=== PATIENT | female | born 2000 | race Caucasian/White ===

== ENCOUNTER 2020-03-06 07:30 | Outpatient (CLI) | payer OTHER, SELFPAY ==
[2020-03-06 09:58] LABS: Hematocrit 37.2 % (37.0-47.0); Hemoglobin 12.3 g/dL (12.0-15.0)
[2020-03-06 10:11] LABS: Glucose 1 Hour PP 50gm Dose 131 mg/dL
[2020-03-06 11:06] LABS: HIV 1/2 Ab P24 Ag Result Negative (Negative)
== END 2020-03-06 07:31 | disposition home or self-care (01) ==
PROVIDERS: PCP Emergency Medicine; Visit Provider Obstetrics & Gynecology
DX: Z34.92 Encounter for supervision of normal pregnancy, unspecified, second trimester (principal)
CPT/HCPCS: 36415; 82947; 85014; 85018; 86703; G0432

== ENCOUNTER 2020-04-13 09:09 | Outpatient (CLI) | payer OTHER, SELFPAY ==
[2020-04-13 09:45] VITALS: BP 116/58; PULSE 84
[2020-04-13 09:59] VITALS: BP 116/58; PULSE 89
--- NOTE | 2020-04-13 10:20 | PC.NURSE ---
Spoke with Dr. mathews, reported on negative ROM plus. patient did report a back spasm overnight but reports no discomfort now. Orders to discharge home.
== END 2020-04-13 10:05 | disposition home or self-care (01) ==
LOC: ANHOBOP 09:15 → ANHOBPP 09:15
PROVIDERS: Visit Provider Obstetrics & Gynecology
DX: Z34.90 Encounter for supervision of normal pregnancy, unspecified, unspecified trimester (principal); Z3A.00 Weeks of gestation of pregnancy not specified
CPT/HCPCS: 59025; 84112; 99199

== ENCOUNTER 2020-04-30 13:22 | Outpatient (RCR) | payer OTHER, SELFPAY ==
[2020-04-11 14:21] VITALS: BP 122/79; PULSE 89
[2020-04-16 13:24] VITALS: BP 110/56; PULSE 89
[2020-04-16 13:25] VITALS: BP 110/56; PULSE 89
[2020-04-24 23:21] VITALS: BP 129/71; PULSE 82
[2020-04-30] VITALS (8 sets, daily range): BP systolic 119–148; BP diastolic 63–90; PULSE 105
--- NOTE | ~2020-04-30 | US_ITS ---
EXAMINATION: US OB BPP wo non-stress DATE: 04/30/2020 15:11 INDICATION: Small for gestational age. Third trimester. TECHNIQUE: Real-time pelvic ultrasound was performed. COMPARISON: Ultrasound 04/11/2020, 09/14/2019 FINDINGS: There is a single living fetus in vertex presentation. The placenta is anterior. heart rate is 145 beats per minute (bpm). Biophysical profile performed by the technologist: breathing (30 sec sustained breathing in 30 minutes): 2 out of 2 movement (3 gross body movements in 30 minutes): 2 out of 2 tone (one episode of vugmipv-adebdpuuq-dpwhgla limb movement): 2 out of 2 Amniotic fluid pocket (2 cm): 2 out of 2 Total score: 8 out of 8 IMPRESSION: 1. Single living fetus in vertex presentation. 2. Biophysical profile 8 out of 8. Reviewed, dictated and finalized at location A.
--- NOTE | ~2020-04-30 | US_ITS ---
EXAMINATION: US OB BPP wo non-stress DATE: 04/11/2020 14:17 INDICATION: Decreased movement. Third trimester. TECHNIQUE: Real-time pelvic ultrasound was performed. COMPARISON: Ultrasound 09/14/2019 FINDINGS: There is a single living fetus in vertex presentation. The placenta is anterior. heart rate is 159 beats per minute (bpm). The amniotic fluid volume is subjectively normal. Biophysical profile performed by the technologist: breathing (30 sec sustained breathing in 30 minutes): 2 out of 2 movement (3 gross body movements in 30 minutes): 2 out of 2 tone (one episode of ipzbdjg-vhvplczzn-sdtpebl limb movement): 2 out of 2 Amniotic fluid pocket (2 cm): 2 out of 2 Total score: 8 out of 8 IMPRESSION: 1. Single living fetus in vertex presentation. 2. Biophysical profile 8 out of 8. Reviewed, dictated and finalized at location A.
[2020-04-30 16:03] LABS: Basophils Absolute Auto 0.1 K/mm3 (0.0-0.1); Basophils Percent Auto 0.4 % (0.2-1.2); Eosinophils Absolute Auto 0.1 K/mm3 (0-0.3); Hematocrit 40.5 % (37.0-47.0); Hemoglobin 13.3 g/dL (12.0-15.0); Immature Granulocyte Absolute 0.06 K/mm3 (0.00-0.031); Immature Granulocyte Percent A 0.5 % (0-0.5); Lymphocytes Absolute Auto 1.94 K/mm3 (0.9-3.2); Mean Corpuscular HGB Conc 32.8 g/dl (32-36); Mean Corpuscular Hemoglobin 27.8 pg (26-34); Mean Corpuscular Volume 84.7 fl (80-100); Mean Platelet Volume 10.5 fl (7.4-10.4); Monocytes Absolute Auto 0.7 K/mm3 (0.1-0.6); Monocytes Percent Auto 5.9 % (2.6-8.5); Neutrophils Absolute Auto 9.2 K/mm3 (1.3-6.7); Neutrophils Percent Auto 76.2 % (45.5-73.1); Platelet Count Result 338 k/mm3 (150-375); Red Blood Count 4.78 M/mm3 (4.2-5.4); Red Cell Distribution Width 14.2 % (11.5-14.5); White Blood Count 12.1 K/mm3 (4.5-10.0)
[2020-04-30 16:07] LABS: Add Urine Microscopic? YES; Appearance Urine Cloudy (Clear); Bacteria Urine 4+ /hpf; Bilirubin Urine Negative (Negative); Blood Urine Negative (Negative); Color Urine Yellow (Yellow); Glucose Urine UA Negative (Negative); Ketones Urine Negative (Negative); Leukocyte Esterase Ur 2+ LEU/UL (NEGATIVE); Mucus Urine Rare /lpf; Nitrate Urine Negative (Negative); Protein Urine Negative (Negative); Specific Grav Ur 1.012 (1.001-1.035); Squamous Epithelial Cell Urine Many /hpf (Few); Urobilinogen Urine Negative mg/dL (<2.0)
[2020-04-30 16:15] LABS: Alanine Aminotransferase 10 U/L (4-35); Albumin Level 3.5 g/dL (3.5-5.1); Alkaline Phosphatase 200 U/L (38-126); Aspartate Amino Transferase 17 U/L (14-36); Bilirubin,Total 0.2 mg/dL (0.2-1.3); Blood Urea Nitrogen 7 mg/dL (7-17); Carbon Dioxide 21 mmol/L (22-30); Chloride 105 mmol/L (98-107); Estimated Glomerular Filt Rate > 60; Glucose 85 mg/dL (65-105); Potassium 4.2 mmol/L (3.4-5.0); Sodium 132 mmol/L (137-145); Uric Acid 4.3 mg/dL (2.5-7.5)
== END 2020-05-07 11:19 | disposition home or self-care (01) ==
LOC: ANHOBOP 13:22
PROVIDERS: Obstetrics & Gynecology; PCP Emergency Medicine; Visit Provider Obstetrics & Gynecology
DX: O36.8130 Decreased fetal movements, third trimester, not applicable or unspecified (principal); Z3A.35 35 weeks gestation of pregnancy; Z3A.36 36 weeks gestation of pregnancy; E66.9 Obesity, unspecified; Z3A.37 37 weeks gestation of pregnancy; Z3A.38 38 weeks gestation of pregnancy
CPT/HCPCS: 36415; 59025; 76819; 80053; 81001; 84550; 85025; 87086; 87088

== ENCOUNTER 2020-05-06 18:49 | Inpatient (IN) | payer OTHER, SELFPAY ==
[2020-05-06] VITALS (19 sets, daily range): BP systolic 119–138; BP diastolic 63–80; PULSE 73–103; TEMP 37; BMI 49.1
--- NOTE | 2020-05-06 18:49 | LDADM ---
This patient, Amelia Esquivel, was admitted to Labor/Delivery/Recovery 107 on 05/06/20 at 18:49. Plans for labor, pain management and were discussed with patient. Patient/family oriented to hospital policies and general routines including ID bracelet, bed and alarms, visiting hours, pain management, procedures, bathroom and other care routines, personal items, smoking policy, room service/diet and guest tray routines, infant security routines, and visiting hours. Patient/Family are encouraged to report perceived risks to care and to ask questions if they do not understand what they are told or what they should do. See OBIX for further documentation.
[2020-05-06 19:55] LABS: Basophils Absolute Auto 0.1 K/mm3 (0.0-0.1); Basophils Percent Auto 0.4 % (0.2-1.2); Eosinophils Absolute Auto 0.1 K/mm3 (0-0.3); Eosinophils Percent Auto 0.5 % (0-4.4); Hematocrit 35.8 % (37.0-47.0); Immature Granulocyte Absolute 0.06 K/mm3 (0.00-0.031); Immature Granulocyte Percent A 0.5 % (0-0.5); Lymphocytes Percent Auto 16.7 % (18.3-44.2); Mean Corpuscular HGB Conc 33.5 g/dl (32-36); Mean Corpuscular Volume 83.4 fl (80-100); Mean Platelet Volume 10.8 fl (7.4-10.4); Monocytes Absolute Auto 0.8 K/mm3 (0.1-0.6); Monocytes Percent Auto 6.1 % (2.6-8.5); Neutrophils Percent Auto 75.8 % (45.5-73.1); Platelet Count Result 352 k/mm3 (150-375); Red Blood Count 4.29 M/mm3 (4.2-5.4); Red Cell Distribution Width 14.3 % (11.5-14.5); White Blood Count 13.2 K/mm3 (4.5-10.0)
[2020-05-06] MEDS: AMPICILLIN 2 GM/NS 100 ML 2 GM/100 ML BAG IVPB (19:56)
[2020-05-06] MEDS: LACTATED RINGERS 1,000 ML 125 ML IV CONT (19:57)
[2020-05-06] MEDS: DINOPROSTONE 10 MG VAG INSERT VAGINAL (21:08)
[2020-05-07] VITALS (170 sets, daily range): BP systolic 77–142; BP diastolic 33–97; PULSE 68–197; RESP 18; TEMP 36.6–36.9; O2SAT 92–100
[2020-05-07] MEDS: AMPICILLIN 1 GM/NS 50 ML 1 GM/50 ML BAG IVPB ×4 (00:07→11:57)
--- NOTE | 2020-05-07 04:50 | WPDANESEPP ---
Anes - Eval Pre Procedure Procedure: labor epidural Date/Time: 05/07/20 04:50 Surgeon: Karyn Preop Diagnosis: labor pain Pre Op Diagnosis: Induction of Labor Patient Data Age: 19 Gender: F Height: 1.57 m Weight: 122 kg Last Vital Signs Temp 37.0 C 05/06/20 19:16 Pulse 83 05/07/20 04:32 BP 137/92 H 05/07/20 04:32 Allergies Allergy/AdvReac Type Severity Reaction Status Date / Time No Known Allergies Allergy Verified 04/16/20 13:18 Home Medications Medication Instructions Recorded Confirmed Type PNV cmb#95-ferrous fumarate-FA 1 tablet PO DAILY 04/11/20 05/06/20 History [] acetaminophen [Tylenol Extra 1,000 mg PO Q6H PRN 04/11/20 05/06/20 History Strength] Laboratory Tests 05/06/20 05/06/20 05/06/20 19:50 19:50 19:50 WBC 13.2 K/mm3 H K/mm3 (4.5-10.0) RBC 4.29 M/mm3 M/mm3 (4.2-5.4) Hgb 12.0 g/dL g/dL (12.0-15.0) Hct 35.8 % L % (37.0-47.0) MCV 83.4 fl fl (80-100) MCH 28.0 pg pg (26-34) MCHC 33.5 g/dl g/dl (32-36) RDW 14.3 % % (11.5-14.5) Plt Count 352 k/mm3 k/mm3 (150-375) MPV 10.8 fl H fl (7.4-10.4) Immature Gran % (Auto) 0.5 % % (0-0.5) Neut % (Auto) 75.8 % H % (45.5-73.1) Lymph % (Auto) 16.7 % L % (18.3-44.2) [place] % (Auto) 6.1 % % (2.6-8.5) Eos % (Auto) 0.5 % % (0-4.4) Baso % (Auto) 0.4 % % (0.2-1.2) Lymph # (Auto) 2.20 K/mm3 K/mm3 (0.9-3.2) [place] # (Auto) 0.8 K/mm3 H K/mm3 (0.1-0.6) Eos # (Auto) 0.1 K/mm3 K/mm3 (0-0.3) Baso # (Auto) 0.1 K/mm3 K/mm3 (0.0-0.1) Abs Immat Gran (auto) 0.06 K/mm3 H K/mm3 (0.00-0.031) Absolute Neuts (auto) 10.0 K/mm3 H K/mm3 (1.3-6.7) Absolute Nucleated RBC 0.0 K/mm3 K/mm3 (0.0-0.012) Nucleated RBC % 0.0 % % (0.0-0.2) RPR Pending Blood Type A Positive Antibody Screen Negative Patient hx anesthesia problems: none Family hx anesthesia problems: none [facility] Past Medical History Medical History (Updated 05/07/20 @ 04:52 by Orlando Arce CRNA) Morbid obesity with BMI of 45.0-49.9, adult No active medical problems Surgical History Surgical History (Updated 05/07/20 @ 04:52 by Orlando Arce CRNA) History of tonsillectomy and adenoidectomy No pertinent past surgical history Family History Family History (Updated 04/16/20 @ 13:21 by Braulio Encarnacion RN) Mother Patient's mother is in good health Father Patient's father is in good health Sibling Patient's brother is in good health Grandparent Acute myocardial infarction Social History Social History (Updated 11/25/19 @ 16:40 by Glenny Berry) Smoking status: Never smoker Substance use: never Spiritual care concerns: No Exam Day of Procedure 05/07/20 04:50 Patient weight: morbidly obese Heart: regular rate and rhythm Lungs: clear to auscultation and normal air movement Airway: Mallampati scale class II Neurological: alert and oriented
[2020-05-07] MEDS: LACTATED RINGERS 1,000 ML 125 ML IV CONT ×3 (07:31→12:01)
--- NOTE | 2020-05-07 07:38 | PM.IMHP ---
H&P: HPI History of Present Illness Chief complaint: Induction of Labor Narrative: Amelia Esquivel is a 19 year old female at 39wks and 4 days admitted for elective term induction of labor. She states she has been feeling contractions all night. Feeling some nausea. Would like an epidural. Review of Systems Constitutional: Constitutional: Reports no additional constitutional complaints Cardiovascular: Cardiovascular: Reports no additional cardiovascular complaints Respiratory: Respiratory: Reports no additional respiratory complaints Gastrointestinal: Gastrointestinal: Reports no additional gastrointestinal complaints, Reports nausea and Reports vomiting Genitourinary: Genitourinary: Reports no additional female genitourinary complaints Musculoskeletal: Musculoskeletal: Reports no additional musculoskeletal complaints Neurologic: Reports system reviewed and no additional complaints, except as documented Psychiatric: Psychiatric: Reports no additional psychiatric complaints [facility] Past Medical History Medical History (Updated 05/07/20 @ 07:42 by Willy Boss DO) Morbid obesity with BMI of 45.0-49.9, adult No active medical problems Surgical History Surgical History (Updated 05/07/20 @ 04:52 by Orlando Arce CRNA) History of tonsillectomy and adenoidectomy No pertinent past surgical history Family History Family History (Updated 04/16/20 @ 13:21 by Braulio Encarnacion RN) Mother Patient's mother is in good health Father Patient's father is in good health Sibling Patient's brother is in good health Grandparent Acute myocardial infarction Social History Social History (Updated 11/25/19 @ 16:40 by Glenny Berry) Smoking status: Never smoker Substance use: never Spiritual care concerns: No Meds Home Medications and Allergies Home Medications Medication Instructions Recorded Confirmed Type PNV cmb#95-ferrous fumarate-FA 1 tablet PO DAILY 04/11/20 05/06/20 History [] acetaminophen [Tylenol Extra 1,000 mg PO Q6H PRN 04/11/20 05/06/20 History Strength] Allergies Allergy/AdvReac Type Severity Reaction Status Date / Time No Known Allergies Allergy Verified 04/16/20 13:18 Vital Signs Vital Signs - 24 hr 05/06/20 19:07 05/06/20 19:16 05/06/20 19:31 Temperature 37.0 C Pulse Rate 102 H 103 H 92 Blood Pressure 133/68 138/71 123/70 05/06/20 20:10 05/06/20 20:17 05/06/20 20:31 Temperature Pulse Rate 89 89 91 Blood Pressure 136/78 133/77 123/74 05/06/20 20:46 05/06/20 21:02 05/06/20 21:18 Temperature Pulse Rate 91 91 86 Blood Pressure 136/80 119/63 125/74 05/06/20 21:31 05/06/20 21:46 05/06/20 22:01 Temperature Pulse Rate 73 91 91 Blood Pressure 128/65 134/75 119/68 05/06/20 22:16 05/06/20 22:31 05/06/20 22:47 Temperature Pulse Rate 91 87 83 Blood Pressure 125/70 128/77 135/74 05/06/20 23:02 05/06/20 23:15 05/06/20 23:17 Temperature 37.0 C Pulse Rate 78 75 Blood Pressure 136/71 138/73 05/06/20 23:32 05/07/20 03:00 05/07/20 03:39 Temperature 36.6 C Pulse Rate 78 81 Blood Pressure 129/77 130/65 05/07/20 03:46 05/07/20 04:01 05/07/20 04:16 Temperature Pulse Rate 89 79 84 Blood Pressure 119/72 130/71 142/83 H 05/07/20 04:32 05/07/20 05:01 05/07/20 05:03 Temperature Pulse Rate 83 79 79 Blood Pressure 137/92 H 135/75 131/66 05/07/20 05:16 05/07/20 05:31 05/07/20 05:46 Temperature Pulse Rate 76 79 77 Blood Pressure 125/73 135/61 132/75 05/07/20 06:01 Temperature Pulse Rate 83 Blood Pressure 137/63 Exam Const: General: no acute distress Resp: Effort & Inspection: normal respiratory effort Cardio: Rate: regular rate GI: Other: gravid Skin: General skin exam: normal color Psych: Mental Status: mental status grossly normal Affect: normal affect H&P: Results Labs Labs: Short CBC 05/06/20 05/06/20 Range/Units 19:50 19:50 WBC 13.2
[2020-05-07 09:14] LABS: Rapid Plasma Reagin Non-Reactive (NonReactive)
[2020-05-07] MEDS: OXYTOCIN 30 UNITS/NS 500 ML 30 UNITS/500 ML BAG 6 UNITS IV CONT (09:17)
--- NOTE | 2020-05-07 09:56 | PM.OBPNLAB ---
Pain Control Date/time seen: 05/07/20 09:56 S: Comfortable s/p epidural, no complaints. Wants to try and sleep. O: VSS Cervix: /-2 AROM, clear 0930 FHT's: 150's/ mod lisa/ + accels/ recurrent variable decels - cat 2 IUPC; ctx's q 2-3min Pit: 2mu --> held A/P: Early IOL AROM performed w/o difficulties, clear fluid noted IUPC placed to better monitor contractions while on pitocin Recurrent variables noted after AROM; pitocin held and position changed; variables improving-- will continue to monitor closely If reassuring FHT's for 30 minutes and contractions space out, will restart pitocin Continue GBS ppx
[2020-05-07] MEDS: SODIUM CHLORIDE 0.9% IV 300 ML 600 ML I-UTERINE (10:26)
[2020-05-07] MEDS: ONDANSETRON INJ 4 MG/2 ML VIAL IV PUSH (11:57)
--- NOTE | 2020-05-07 13:20 | PM.OBPNVD ---
OB - PN: Subj Subjective Date/time seen: 05/07/20 13:20 Feeling better with epidural in place OB - PN: Obj Data Labs CBC & Chem 7: 05/06/20 19:50 Labs: Laboratory Results - last 24 hr 05/06/20 05/06/20 05/06/20 19:50 19:50 19:50 WBC 13.2 H RBC 4.29 Hgb 12.0 Hct 35.8 L MCV 83.4 MCH 28.0 MCHC 33.5 RDW 14.3 Plt Count 352 MPV 10.8 H Immature Gran % (Auto) 0.5 Neut % (Auto) 75.8 H Lymph % (Auto) 16.7 L [place] % (Auto) 6.1 Eos % (Auto) 0.5 Baso % (Auto) 0.4 Lymph # (Auto) 2.20 [place] # (Auto) 0.8 H Eos # (Auto) 0.1 Baso # (Auto) 0.1 Abs Immat Gran (auto) 0.06 H Absolute Neuts (auto) 10.0 H Absolute Nucleated RBC 0.0 Nucleated RBC % 0.0 RPR Non-reactive Blood Type A Positive Antibody Screen Negative OB - PN A/P Assessment and Plan (1) Term : Code(s): Z34.90 - Encounter for supervision of normal , unspecified, unspecified trimester Status: Acute Assessment and Plan: strip reviewed. Recurrent variable decelerations after AROM. IUPC and Amnioinfusion started. Decels resolved. Now category 1 tracing. Will restart pitocin. (2) Obesity affecting : Code(s): O99.210 - Obesity complicating , unspecified trimester Status: Acute (3) GBS (group B Streptococcus carrier), +RV culture, currently : Code(s): O99.820 - Streptococcus B carrier state complicating Status: Acute Time Spent With Patient Time: Total time spent is greater than 50% in coordination of care (as documented) at patient's floor/unit and/or counseling patient: Exam : Manual OB Exam: dilated (5-6cm), effaced (90%) and station -2
--- NOTE | 2020-05-07 15:58 | PM.OBPRVD ---
OB - Delivery Note Procedure Delivery date: 05/07/20 events: Labor Induction (Elective term) Intrapartal events: None Induction method: AROM, per pitocin protocol and other (cervidil) Delivery augmentation: pitocin Delivery monitor: internal uterine Route of delivery: Laceration description: Perineal - 1st Degree Delivery repair: vicryl (3-0) Specimen: No Estimated blood loss (mL): 100 Anesthesia type: Epidural Baby Date of : 05/07/20 Time of : 15:35 Weeks of gestation at delivery: 39 Infant gender: Female Weight (pounds): 6 Weight (ounces): 10 presentation: vertex position: Right Occiput Anterior Placenta delivery description: Spontaneous cord vessel description: 3 Vessels score one minute: 8 score five minutes: 9
[2020-05-07] MEDS: OXYTOCIN 30 UNITS/NS 500 ML 30 UNITS/500 ML BAG 125 UNITS IV CONT (16:16)
--- NOTE | 2020-05-07 17:24 | OP_ITS ---
DATE OF PROCEDURE: 05/07/2020 PROCEDURE: Normal spontaneous vaginal delivery. PREDELIVERY DIAGNOSES: 1. 39-week term gestation. 2. Obesity. POSTDELIVERY DIAGNOSES: 1. 39-week term gestation. 2. Obesity. 3. Status post normal spontaneous vaginal delivery. ANESTHESIA: Epidural. ESTIMATED BLOOD LOSS: 100 mL. COMPLICATIONS: None apparent. SPECIMEN: Cord blood, placenta discarded. FINDINGS: 1. Single live female born on May 07 at 15:35. Weight 6 pounds 10 ounces female, Apgars 8 and 9. 2. First-degree perineal lacerations repaired with 3-0 Vicryl. BRIEF HISTORY: A 19-year-old, G1, P0, at 39 weeks and 4 days gestation initially admitted for elective induction of labor at term. Cervical ripening with Cervidil. Labor induction with Pitocin and artificial rupture of membranes. Fetus had intermittent variable decelerations, which was resolved with an IUPC and amnioinfusion. DESCRIPTION OF PROCEDURE: Once the patient was noted to be complete and ready to push, delivered, bed was broken down. The patient's legs were placed in stirrups for support with contractions and maternal efforts. The fetus presented in TREMAINE position. Head was delivered followed by the anterior shoulder and posterior shoulder and rest of the body. The was then handed off to the mother. Delayed cord clamping of approximately 1 minute was performed. The cord was clamped and cut. The placenta was delivered spontaneously. Fundal massage applied. IV Pitocin administered. Exam was performed to identify any lacerations. A first-degree perineal laceration was noted. This was repaired using 3-0 Vicryl. Good hemostasis was noted. This completed the procedure. All sponge and instrument counts were correct. The patient tolerated the procedure well and is resting in the Labor and Delivery room. D I MT: Nelsy DAN
[2020-05-07] MEDS: WITCH HAZEL 40 PADS 1 PAD TOPICAL (18:16)
[2020-05-07] MEDS: BENZOCAINE 20% AER SPR (*SP) 56 GM CAN 1 SPRAY TOPICAL (18:16)
[2020-05-07] MEDS: IBUPROFEN 600 MG TABLET PO (18:16)
[2020-05-08 05:43] LABS: Hematocrit 30.4 % (37.0-47.0); Hemoglobin 10.1 g/dL (12.0-15.0)
[2020-05-08 07:00] VITALS: BP 101/60; PULSE 80; RESP 18; TEMP 36.6; O2SAT 98
[2020-05-08] MEDS: DOCUSATE SODIUM 100 MG CAPSULE PO (07:03)
[2020-05-08] MEDS: IBUPROFEN 600 MG TABLET PO ×2 (07:03→13:43)
--- NOTE | 2020-05-08 07:53 | WPDANLDPN2 ---
Anes-Prog Note L&D Date/Time: 05/08/20 07:53 Comfortable throughout: labor and delivery Neuraxial method: epidural Epidural/Spinal procedure site: clean & non-tender Neuro status: Neuro function grossly intact. Cardiovascular status: normal Respiratory status: normal Airway patency: baseline Mental status: baseline Post-Op hydration status: normal Vital Signs: Last Vital Signs Temp 36.8 C 05/07/20 18:55 Pulse 78 05/07/20 18:55 Resp 18 05/07/20 18:55 BP 114/53 L 05/07/20 18:55 Pulse Ox 100 05/07/20 18:55 I/O: Intake & Output 05/07/20 05/07/20 05/08/20 15:59 23:59 07:59 Intake Total 2049 650 Output Total 50 Balance 2049 600 Post-procedural complaints: none Patient feedback: Patient satisfied with anesthetic care.
--- NOTE | 2020-05-08 16:35 | PM.OBPNVD ---
OB - PN: Subj Subjective Date/time seen: 05/08/20 16:35 Patient comments: no complaints and pain well controlled baby status: doing well Narrative: Having some pain and soreness, but pain medication helps. Tired and wants to sleep. Ambulating. Tolerating diet OB - PN: Obj Data Labs CBC & Chem 7: 05/08/20 04:59 Labs: Laboratory Results - last 24 hr 05/08/20 04:59 Hgb 10.1 L Hct 30.4 L OB - PN A/P Assessment and Plan (1) (normal spontaneous vaginal delivery): Code(s): O80 - Encounter for full-term uncomplicated delivery Status: Acute Assessment and Plan: Routine care pain management ambulate DC home tomorrow 05/09 (2) Obesity affecting : Code(s): O99.210 - Obesity complicating , unspecified trimester Status: Acute Time Spent With Patient Time: Total time spent is greater than 50% in coordination of care (as documented) at patient's floor/unit and/or counseling patient: Exam Const: General: comfortable, no acute distress, alert and awake; No acute distress Orientation/consciousness: patient oriented x3 Resp: Effort & Inspection: normal respiratory effort Cardio: Rate: regular rate GI: Other: soft, nontender Psych: Appearance: grossly normal Affect: normal affect Attitude: cooperative Judgement: Good judgement present (Psych)
[2020-05-08 19:13] VITALS: BP 108/58; PULSE 88; RESP 16; TEMP 36.6
[2020-05-09] MEDS: IBUPROFEN 600 MG TABLET PO ×2 (02:40→08:57)
[2020-05-09 08:25] VITALS: BP 122/69; PULSE 70; RESP 18; TEMP 36.9; O2SAT 100
--- NOTE | 2020-05-09 09:03 | PC.NURSE ---
Patient viewed the discharge video Mother & Baby Care, The First Two Weeks . Patient was given the opportunity and encouraged to ask questions. Patient verbalized understanding of information shared and has been given the mother/baby guide for home reference.
[2020-05-09] MEDS: MEASLES,MUMPS,RUBELLA VACCINE 0.5 ML VIAL SUB-Q (13:15)
--- NOTE | 2020-05-09 16:49 | PM.OBDSVD ---
DS: Admitting Diagnosis Admitting Diagnosis Admitting Diagnosis: Encounter for supervision of normal , unspecified, unspecified trimester DS: Discharge Diagnosis Discharge Diagnosis (1) (normal spontaneous vaginal delivery): Code(s): O80 - Encounter for full-term uncomplicated delivery Status: Acute OB - DS: Summary OB Procedures : None OB Procedures Intrapartum: Spontaneous Vag Delivery OB Procedures: : None Peripartum Data Delivery Method: Natural Vaginal Laceration description: Perineal - 1st Degree complications: none Status at Discharge Functional status at discharge: independent ambulation Overall status at discharge: patient is progressing back to baseline Time Spent with Patient Time attestation: Total time spent providing and/or coordinating discharge services: Exam Const: General: comfortable, no acute distress, alert and awake; No acute distress Orientation/consciousness: patient oriented x3 Resp: Effort & Inspection: normal respiratory effort Cardio: Rate: regular rate GI: Other: soft, nontender Neuro: General: patient oriented x3 Psych: Appearance: grossly normal Mental Status: mental status grossly normal Affect: normal affect Attitude: cooperative Judgement: Good judgement present (Psych) Discharge Plan Discharge Attending physician on discharge: Willy Boss Discharging Clinician: Willy Boss Patient Disposition: Home, Self-Care Activity: as tolerated Diet: regular Discharge Instructions: Education: Mom and Baby Guide Given to: Mother Follow-Up: Call your delivering provider's office for an appointment to be seen in: Call for appointment Mom and baby should come to the [facility] for the follow-up appointment. Appointment Date/Time: April at 10:00 am What to expect at your follow-up visit: Blood Pressure Check Physical Assessment Call [phone] if you are unable to keep your appointment time. BREAST CARE: 1. Wear a snug supportive bra. 2. For engorgement discomfort: Bottle Feeding: A. May apply ice packs EPISIOTOMY/PERINEAL CARE: 1. Until bleeding stops, use your cristhian bottle after urinating 2. Change your pad frequently throughout the day 3. You may take sitz baths several times a day (fill your bathtub with warm water and soak for 20 minutes.) Do NOT bathe in the water 4. No tub baths until seen by your physician - You may shower ACTIVITY: 1. Rest as much as possible. 2. Do not exercise or lift anything heavier than your baby (such as laundry or other children.) 3. Avoid stairs or driving as much as possible. 4. Do not put anything into the vagina. No douching, tampons, or sexual activity until seen by physician. NOTIFY PHYSICIAN IF YOU HAVE ANY QUESTIONS OR IF ANY OF THE FOLLOWING SYMPTOMS OCCUR: 1. If your perineum becomes red, swollen, or more painful than what you have experienced in the hospital. 2. If your vaginal bleeding becomes foul smelling. 3. If your vaginal bleeding becomes more heavy than a period or if your bleeding changes from pink to bright red. However, you may pass an occasional walnut-sized clot once or twice for the first week . 4. If you experience a sharp, shooting pain in you calves. 5. If you discover a hard, reddened area on your breast or if you experience flu-like symptoms. DIET: 1. Eat regular, well-balanced meals. 2. Drink plenty of fluids daily. If , drink to thirst. Stand Alone Forms: General Discharge Information Follow-up/Referrals: Willy Boss DO [Physician] - Call for Appointment Discharge Medications: New docusate sodium 100 mg Capsule 100 mg PO BID PRN (Reason: Constipation) Qty: 60 RF: 0 ibuprofen 600 mg Tablet 600 mg PO Q6H PRN (Reason: Cramping) Qty: 90 RF: 0 Continued acetaminophen [Tylenol Extra Strength] 500 mg Tablet 1,
[2020-05-10 10:20] VITALS: BP 116/77; PULSE 76; RESP 20; TEMP 37
== END 2020-05-09 13:46 | disposition home or self-care (01) | DRG 560 ==
LOC: ANHLDR 19:04 → ANHOB2 05-07 18:39
PROVIDERS: Admitting Provider Obstetrics & Gynecology; Visit Provider Obstetrics & Gynecology
DX: O99.214 Obesity complicating childbirth (principal); Z37.0 Single live birth; Z3A.39 39 weeks gestation of pregnancy; E66.01 Morbid (severe) obesity due to excess calories; O36.8330 Maternal care for abnormalities of the fetal heart rate or rhythm, third trimester, not applicable or unspecified; O70.0 First degree perineal laceration during delivery
CPT/HCPCS: 36415; 85014; 85018; 85025; 86592; 86850; 86900; 86901; 90710; A9270; J0290; J2405; J2590; J2795; J3010; J7030; J7120

== ENCOUNTER 2020-06-18 09:20 | Emergency (ER) | payer OTHER, SELFPAY ==
--- NOTE | ~2020-06-18 | CT_ITS ---
EXAMINATION: CT brain wo con INDICATION: Progressively blurry vision, headache COMPARISON: None TECHNIQUE: Standard unenhanced head CT. The dose-length product (DLP) was 605.33 mGy-cm. The mA was a djusted according to patient size. Iterative reconstruction technique was employed. FINDINGS: There is no intracranial hemorrhage, acute infarction, or abnormal mass lesion. The ventric les are normal. There is no abnormal mass effect or midline shift. The nieto-white matter differentiat ion is normal. The basal cisterns are patent. The orbits are normal. The paranasal sinuses, mastoids and calvarium are normal. IMPRESSION: 1. No acute intracranial abnormality. Reviewed, dictated and finalized at location A.
[2020-06-18 09:44] VITALS: BP 145/102; PULSE 77; RESP 14; TEMP 36.9; O2SAT 100
[2020-06-18 11:36] LABS: Basophils Percent Auto 0.5 % (0.2-1.2); Eosinophils Absolute Auto 0.2 K/mm3 (0-0.3); Eosinophils Percent Auto 2.2 % (0-4.4); Hematocrit 38.3 % (37.0-47.0); Hemoglobin 12.6 g/dL (12.0-15.0); Immature Granulocyte Absolute 0.02 K/mm3 (0.00-0.031); Immature Granulocyte Percent A 0.3 % (0-0.5); Lymphocytes Absolute Auto 1.94 K/mm3 (0.9-3.2); Lymphocytes Percent Auto 26.4 % (18.3-44.2); Mean Corpuscular HGB Conc 32.9 g/dl (32-36); Mean Corpuscular Hemoglobin 27.6 pg (26-34); Mean Platelet Volume 10.3 fl (7.4-10.4); Monocytes Absolute Auto 0.6 K/mm3 (0.1-0.6); Monocytes Percent Auto 7.5 % (2.6-8.5); Neutrophils Absolute Auto 4.6 K/mm3 (1.3-6.7); Neutrophils Percent Auto 63.1 % (45.5-73.1); Platelet Count Result 399 k/mm3 (150-375); Red Blood Count 4.56 M/mm3 (4.2-5.4); Red Cell Distribution Width 14.3 % (11.5-14.5); White Blood Count 7.4 K/mm3 (4.5-10.0)
[2020-06-18 11:47] LABS: Alanine Aminotransferase 37 U/L (4-35); Albumin Level 4.1 g/dL (3.5-5.1); Alkaline Phosphatase 61 U/L (38-126); Anion Gap 10.4 mmol/L (7-16); Aspartate Amino Transferase 35 U/L (14-36); Bilirubin,Total 0.6 mg/dL (0.2-1.3); Blood Urea Nitrogen 16 mg/dL (7-17); Calcium 8.8 mg/dL (8.4-10.2); Carbon Dioxide 22 mmol/L (22-30); Chloride 109 mmol/L (98-107); Estimated CRCL calculation 105 ml/min; Estimated Glomerular Filt Rate > 60; Glucose 88 mg/dL (65-105); Potassium 4.4 mmol/L (3.4-5.0); Sodium 137 mmol/L (137-145)
[2020-06-18 12:18] LABS: Erythrocyte Sedimentation Rate 33 mm/hr (0-20)
--- NOTE | 2020-06-18 12:37 | ED.EYEPROB ---
HPI - Eye Problem General Chief complaint: Eye Problems Stated complaint: BLURRY VISION Time Seen by Provider: 06/18/20 10:13 Source: patient Mode of arrival: ambulatory Limitations: no limitations History of Present Illness HPI Narrative: Patient presents with chief complaint of blurry vision that has progressed since taking her daughter to her doctor's appointment this morning and driving at approximately 9 AM. Patient states after she noticed that the street signs are blurry. She then noticed that the blurry vision continued to progress. Patient states that she began to cry and had a headache but when she come down the headache went away. Patient states the blurry vision has discontinued since that point. She denies any headaches or ocular pain at this time. Patient states that she was started on ropinirole for restless leg syndrome on Thursday and she was started on Topamax 1 week ago due to feeling sharp sensations along her head and a history of migraines. Patient states that the the restless leg syndrome sharp shooting sensations in her brain began after having her daughter 6 weeks ago. Patient states that she has not had any hypertension during her . Patient denies nausea, vomiting, dizzness, chest pain or shortness of breath. Patient denies being on any other medications. Related Data Home Medications Medication Instructions Recorded Confirmed ropinirole 0.5 mg PO DAILY 06/18/20 topiramate 25 mg PO DAILY 06/18/20 Allergies Allergy/AdvReac Type Severity Reaction Status Date / Time No Known Allergies Allergy Verified 04/16/20 13:18 Review of Systems Review of Systems: Narrative: CONSTITUTIONAL: Denies fever, chills, or sweats. EYES: Reports visual changes, Denies redness, pain or discharge. ENT: Denies rhinorrhea, congestion, sore throat, or otalgia. CARDIOVASCULAR: Denies chest pain, palpitations, or edema. RESPIRATORY: Denies cough or dyspnea. GASTROINTESTINAL: Denies abdominal pain, nausea, vomiting, or diarrhea. GENITOURINARY: Denies dysuria or hematuria. SKIN: Denies rash or itching. MUSCULOSKELETAL: Denies back pain, joint pain, or myalgia. NEUROLOGIC: Denies headache, numbness, dizziness, or weakness. PSYCHIATRIC: Denies anxiety or depression. [facility] Past Medical History Medical History (Updated 06/18/20 @ 14:09 by Jaylyn Forte PA-C) Morbid obesity with BMI of 45.0-49.9, adult No active medical problems Surgical History Surgical History (Updated 05/08/20 @ 16:39 by Willy Boss DO) History of tonsillectomy and adenoidectomy No pertinent past surgical history Family History Family History (Updated 04/16/20 @ 13:21 by Braulio Encarnacion RN) Mother Patient's mother is in good health Father Patient's father is in good health Sibling Patient's brother is in good health Grandparent Acute myocardial infarction Social History Social History (Updated 11/25/19 @ 16:40 by Glenny Berry) Smoking status: Never smoker Substance use: never Spiritual care concerns: No Exam Narrative: Exam Narrative: GENERAL: Well-appearing, well-nourished, and in no acute distress. HEAD: Normocephalic, atraumatic. EYES: PERRLA and EOMI. No injection to conjunctiva. No tearing or drainage. Tonopin pressure R:47 L:40 Asked patient to stop rubbing her eyes and will recheck pressures ENT: Nares clear, no rhinorrhea or epistaxis. Mucous membranes moist. Oropharynx without tonsillar hypertrophy exudate or other lesions. Bilateral TMs pearly nieto nonbulging NECK: Supple. No adenopathy or masses. No carotid bruits or JVD CHEST: Clear to auscultation. No respiratory distress. No wheezes rales or rhonchi HEART: Regular rate and rhythm. No murmur heard. Normal peripheral pulses. ABDOMEN: Soft, nontender, nondistended, normal active bowel sounds. EXTREMITIES: Normal range of motion. No edema. SKIN: Warm, dry, no rash. NEURO: No focal deficits. Alert and oriented x3. PSYCH: Normal mood and affect.
[2020-06-18 13:00] VITALS: BP 142/97; PULSE 70; RESP 14; O2SAT 99
[2020-06-18 13:07] LABS: Add Urine Microscopic? NO; Appearance Urine Clear (Clear); Bilirubin Urine Negative (Negative); Blood Urine Negative (Negative); Color Urine Yellow (Yellow); Glucose Urine UA Negative (Negative); Ketones Urine Negative (Negative); Leukocyte Esterase Ur Negative LEU/UL (Negative); Mucus Urine Rare /lpf; Nitrate Urine Negative (Negative); Protein Urine Negative (Negative); RBC Urine 0-2 /hpf (0-2); Specific Grav Ur 1.017 (1.001-1.035); Squamous Epithelial Cell Urine Few /hpf (Few); Urobilinogen Urine Negative mg/dL (<2.0); WBC Urine 0-3 /hpf
== END 2020-06-18 13:25 | disposition short-term general hospital (02) ==
PROVIDERS: Physician Assistant; Emergency Provider Emergency Medicine; PCP Emergency Medicine
DX: H40.053 Ocular hypertension, bilateral (principal); E66.01 Morbid (severe) obesity due to excess calories; Z68.42 Body mass index [BMI] 45.0-49.9, adult
CPT/HCPCS: 36415; 70450; 80053; 81003; 85025; 85652; 99284

== ENCOUNTER 2020-06-20 10:10 | Outpatient (CLI) | payer OTHER, SELFPAY ==
[2020-06-20 11:12] LABS: Beta HCG Quantitative < 2.39 mIU/ML
== END 2020-06-20 10:11 | disposition home or self-care (01) ==
LOC: ANHLAB 10:12
PROVIDERS: PCP Emergency Medicine; Visit Provider Obstetrics & Gynecology
DX: N92.6 Irregular menstruation, unspecified (principal)
CPT/HCPCS: 36415; 84702